=== PATIENT | female | born 1970 | race Asian ===

== ENCOUNTER → 2017-04-27 | Outpatient (CLI) | payer OTHER | LOC: M PLARAD 08:24 | DX: C85.99 Non-Hodgkin lymphoma, unspecified, extranodal and solid organ sites (principal); H53.9 Unspecified visual disturbance | CPT/HCPCS: 78815 ==

== ENCOUNTER → 2017-06-10 | Outpatient (CLI) | payer OTHER | LOC: M RAD 09:55 | DX: H90.12 Conductive hearing loss, unilateral, left ear, with unrestricted hearing on the contralateral side (principal) | CPT/HCPCS: 70480 ==